=== PATIENT | female | born 1985 | race African-American/Black ===

== ENCOUNTER 2018-07-20 19:46 | Emergency (ER) | payer OTHER ==
[~2018-07-20] VITALS: Ht 152.4 cm; Wt 78.0 kg
[~2018-07-20 19:46] MED LIST: BENTYL 10 MG CA10 M1 PO; BLEPH-105 ML OPHTHALMIC; CIPROFLOXACIN500 M1 PO; FLAGYL500 MG PO; NOHOMEMEDICATIONS; NORCO 5-325 TA1 EACH PO; ZOFRAN4 MG PO
[2018-07-20 19:55] VITALS: BP 131/68
[2018-07-20] MEDS ORDERED: PENICILLIN V P500 MG PO (20:06)
[2018-07-20] MEDS ORDERED: NABUMETONE 750750 M1 PO (20:06)
[2018-07-20] MEDS ORDERED: TRAMADOL 50 MG50 MG PO (20:06)
== END 2018-07-20 20:11 | disposition home or self-care (01) ==
LOC: M.ERS 19:46
DX: K04.7 Periapical abscess without sinus (principal); Z98.890 Other specified postprocedural states

== ENCOUNTER 2019-10-26 11:17 | Emergency (ER) | payer OTHER, MEDICAID ==
[~2019-10-26] VITALS: Ht 154.9 cm; Wt 81.7 kg
[~2019-10-26 11:17] MED LIST changes: +NABUMETONE 750750 M1 PO; +PENICILLIN V P500 MG PO; +TRAMADOL 50 MG50 MG PO
[2019-10-26 11:54] LABS: ABSOLUTE BASOPHILS 0.1 thou/uL (0.0-0.2); ABSOLUTE EOSINOPHILS 0.1 thou/uL (0.0-0.7); ABSOLUTE LYMPHOCYTES 1.7 thou/uL (0.8-5.3); ABSOLUTE MONOCYTES 0.7 thou/uL (0.0-1.2); ABSOLUTE NEUTROPHILS 5.2 thou/uL (1.6-8.1); EOSINOPHILS 1.7 %; HEMATOCRIT 37.7 % (37.0-47.0); HEMOGLOBIN 12.4 gm/dL (12.0-15.0); LYMPHOCYTES 21.6 %; MCH 28.6 pg (26.0-34.0); MCHC 32.8 g/dL (28.0-37.0); MCV 87.1 fL (80.0-100.0); MONOCYTES 8.9 %; MPV 8.1 fl. (7.2-11.1); NUCLEATED RBCS 0 /100WBC; PLATELET COUNT* 409 thou/uL (150-400); POLYS 66.8 %; RBC 4.32 mil/uL (4.20-5.00); RDW-CV 15.2 % (10.5-14.5); WBC 7.8 thou/uL (4.0-11.0)
[2019-10-26 11:55] LABS: URINE BILIRUBIN NEGATIVE (Negative); URINE BLOOD 2+ (Negative); URINE CLARITY CLOUDY; URINE COLOR YELLOW; URINE GLUCOSE-RANDOM NEGATIVE (Negative); URINE KETONES NEGATIVE (Negative); URINE LEUKOCYTES-REFLEX 3+ (Negative); URINE NITRITE-REFLEX NEGATIVE (Negative); URINE PROTEIN 1+ (Negative); URINE SPECIFIC GRAVITY 1.015 (1.005-1.030); URINE UROBILINOGEN 0.2 E.U./dl (0.2-1.0)
[2019-10-26 12:01] LABS: CALCIUM 9.5 mg/dL (8.5-10.1); CREATININE 1.2 mg/dL (0.6-1.3); POTASSIUM 3.9 mmol/L (3.5-5.1)
[2019-10-26 12:05] LABS: ALBUMIN 3.6 g/dL (3.4-5.0); TOTAL BILIRUBIN 0.5 mg/dL (<0.1-1.0); TOTAL PROTEIN 8.5 g/dL (6.4-8.2)
[2019-10-26 12:06] LABS: BACTERIA-REFLEX >30 Many /HPF (None Seen); SQUAMOUS >10 Many /LPF (0-3)
[2019-10-26 12:07] LABS: CASTS None Seen /LPF (None Seen); CRYSTALS None Seen /LPF (None Seen); MUCUS 0-3 Light strn/LPF (None Seen)
[2019-10-26 12:08] LABS: URINE RBC 3-10 Few /HPF (0-2)
[2019-10-26] MEDS ORDERED: MACROBID 100 M100 M1 PO (12:36)
[2019-10-26] MEDS ORDERED: ZOFRAN ODT4 MG PO (12:36)
[2019-10-26 13:12] VITALS: BP 110/69
[2019-10-26] MEDS ORDERED: PHENERGAN 25 MG25 M1 PO (23:31)
[2019-10-26] MEDS ORDERED: BACTRIM DS TAB1 EACH PO (23:31)
== END 2019-10-26 13:14 | disposition home or self-care (01) ==
LOC: M.ERS 11:17
PROVIDERS: Nurse Practitioner Family
DX: R11.2 Nausea with vomiting, unspecified (principal); N39.0 Urinary tract infection, site not specified; Z98.890 Other specified postprocedural states

== ENCOUNTER 2019-10-26 22:51 | Emergency (ER) | payer OTHER, MEDICAID ==
[~2019-10-26] VITALS: Ht 154.9 cm; Wt 83.0 kg
[~2019-10-26 22:51] MED LIST changes: +MACROBID 100 M100 M1 PO; +ZOFRAN ODT4 MG PO
[2019-10-26] MEDS ORDERED: PHENERGAN 25 MG25 M1 PO (23:31)
[2019-10-26] MEDS ORDERED: BACTRIM DS TAB1 EACH PO (23:31)
[2019-10-26 23:46] VITALS: BP 135/75
== END 2019-10-26 23:47 | disposition home or self-care (01) ==
LOC: M.ERS 22:51
DX: N39.0 Urinary tract infection, site not specified (principal); R11.2 Nausea with vomiting, unspecified; Z98.890 Other specified postprocedural states